=== PATIENT | male | born 1945 | race Hispanic/Latino ===

== ENCOUNTER 2017-05-18 06:10 | Day surgery (SDC) | payer MEDICARE, OTHER ==
[2017-05-08 13:43] VITALS: BMI 25.0
[2017-05-18 06:53] LABS: ADD MANUAL DIFF? NO
[2017-05-18] MEDS ORDERED: Lidocaine 2% Inj (20ml) ONE (06:55)
[2017-05-18] MEDS ORDERED: Iodixanol 320 MG/ML 200 ML BOTTLE IV ONE (06:56)
[2017-05-18] MEDS ORDERED: Nitroglycerin 50mg in D5W 50 MG/250 ML BOTTLE IV ONE (06:56)
[2017-05-18] MEDS ORDERED: Phenylephrine 10 mg/ml Inj ONE (06:56)
[2017-05-18] MEDS ORDERED: Iohexol 350mgl/ml 50 ML ONE (06:56)
[2017-05-18] MEDS ORDERED: Iodixanol 320 MG/ML 100 ML BOTTLE IV ONE (06:56)
[2017-05-18 07:06] LABS: BLOOD UREA NITROGEN 8 mg/dL (7-21); CALCIUM 9.4 mg/dL (8.4-10.5); CARBON DIOXIDE 28 mmol/L (21-33); CHLORIDE 105 mmol/L (98-107); GFR AFRICAN-AMERICAN > 60; GLUCOSE,RANDOM 88 mg/dL (70-110); POTASSIUM 3.8 mmol/L (3.6-5.0); SODIUM 142 mmol/L (132-148)
[2017-05-18] MEDS ORDERED: Midazolam 2 MG/2 ML VIAL ONE ×2 (07:11→08:00)
[2017-05-18 07:12] LABS: INR 1.03 (0.93-1.08); PARTIAL THROMBOPLASTIN TIME 30.7 Seconds (23.7-30.8)
[2017-05-18 07:15] LABS: BASO # 0.02 K/mm3 (0.0-2.0); BASO % 0.4 % (0.0-3.0); EOS # 0.1 (0.0-0.7); EOS % 2.3 % (1.5-5.0); GRAN # 3.09 (1.4-6.5); GRAN % 58.6 % (50.0-68.0); HEMATOCRIT 45.1 % (42.0-52.0); LYMPH # 1.7 (1.2-3.4); LYMPH % 31.9 % (22.0-35.0); MEAN CORPUSCULAR HGB CONC 33.7 g/dl (31.0-37.0); MEAN PLATELET VOLUME 12.4 fl (7.0-11.0); MONO # 0.4 (0.1-0.6); MONO % 6.8 % (1.0-6.0); PLATELET COUNT 133 10^3/uL (120.0-450.0); RED CELL DISTRIBUTION WIDTH 13.9 % (11.5-14.5); WHITE BLOOD COUNT 5.3 10^3/ul (4.5-11.0)
[2017-05-18] MEDS ORDERED: Sodium Chloride 0.9% 1,000 ML IV SCH (09:00)
--- NOTE | 2017-05-18 09:08 | CARDCATH ---
PROCEDURE DATE: 05/18/2017 HISTORY: The patient is a 72-year-old male with history of hypertension as well as a percutaneous oc clusion of a PFO in the past who presents with deterioration of LV function with an abnormal stress t est. He suffers from hypertension, he drinks at a minimum of 2 beers a day, and suffers from hyperch olesterolemia. He is also status post PTCA and stent of an RCA in the past. Because of this, a cardiac catheterizat ion was recommended. PROCEDURE: Left heart catheterization with coronary angiography and left ventriculogram. The right femoral artery was cannulated with a 6-Russian sheath. There were no complications. The findings on catheterization revealed a right dominant circulation. The RCA revealed a patent stent in the proximal RCA with no critical lesions. The left main artery revealed intimal irregularities without significant disease. The LAD and diagonal vessels revealed diffuse atherosclerosis. In the proximal portion of the LAD, t here is a 50% stenosis noted. The circumflex artery and obtuse marginal branches revealed diffuse atherosclerosis with a 50% stenos is in the proximal circumflex artery. The left ventricle was dilated and diffusely hypokinetic with an EF of 30-35%. No mitral regurgitati on was noted. Angio-Seal was used to close the femoral artery site. The patient tolerated the procedure well. SUMMARY: 1. The procedure revealed a deteriorating in left ventricle with an ejection fraction of 30-35%. 2. Patent stent in the right coronary artery. 3. 50% proximal left anterior descending and 50% proximal circumflex artery lesions. Given these findings, the patient's deterioration of his LV function is not ischemic based. I will a sk the patient to stop his alcohol intake. Will remeasure his ejection fraction after changing his c alcium channel jt to ARB for better blood pressure control. We will remeasure his EF in 6 month s. Antonio Tirado MD cc: [id number] TT: 05/18/2017 09:08:15 [email or web address]
[2017-05-18 09:18] VITALS: TEMP 97
[2017-05-18 10:59] VITALS: O2SAT 98
[2017-05-18 11:38] VITALS: PULSE 61; RESP 18
[2017-05-18 13:24] VITALS: BP 130/78
== END 2017-05-18 15:10 | disposition home or self-care (01) ==
LOC: CATH 06:10
PROVIDERS: ATTEND Internal Medicine Cardiovascular Disease
DX: I10 Essential (primary) hypertension (principal); R94.39 Abnormal result of other cardiovascular function study; E78.00 Pure hypercholesterolemia, unspecified; Z95.5 Presence of coronary angioplasty implant and graft
CPT/HCPCS: 36415; 80048; 85025; 85610; 85730; 86850; 86900; 93458; 99152; C1760; C1769; C2629; J1644; J2250; J3010; J7030; J7040; Q9967 ×2

== ENCOUNTER 2019-01-05 15:42 | Outpatient (CLI) | payer MEDICARE, OTHER | END 2019-01-05 15:43 | disposition home or self-care (01) | LOC: RAD 15:42 ==